=== PATIENT | male | born 2000 | race Caucasian/White ===

== ENCOUNTER 2018-10-15 10:56 | Emergency (ER) | payer BC, OTHER ==
[~2018-10-15] VITALS: Ht 177.8 cm; Wt 95.3 kg
[2018-10-15] MEDS ORDERED: IBUP-2185 PO (11:10)
--- NOTE | 2018-10-15 11:27 | ED Cough/URI ---
General Chief Complaint: Fever-Adult/Adol Stated Complaint: VOMITING; FEVER Nursing Triage Note: Started feeling bad at noon yesterday with fever, nausea, vomiting, and sore throat. Temp max of 103 yesterday. Has had body aches and weakness. States he has been able to keep down fluids and has taken ibuprofen 400 mg prior to coming to ED. 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 Reports occasional cough, no shortness of breath or wheezing. No history of asthma. Denies headache, neck pain, stiffness, rash. No abdominal pain, Luty diarrhea. No other acute symptoms or complaints. Patient denies history of chronic illnesses. Timing/Duration: yesterday Severity/Quality: mild Prior Episodes/Possible Cause: no prior episodes Modifying Factors: Improves With Rest Associated Symptoms: cough, fever/chills, muscle aches, nasal congestion, nasal drainage, sore throat, other Allergies and Home Medications Allergies Coded Allergies: No Known Drug Allergies (Unverified , 10/15/18) Home Medications Ibuprofen 200 Mg Capsule, 200 MG PO Q6H, (Reported) Patient Home Medication List Home Medication List Reviewed: Yes Review of Systems Review of Systems Constitutional: see HPI, fever EENTM: see HPI Respiratory: see HPI Genitourinary: No hematuria, No pain Musculoskeletal: back pain Skin: no symptoms reported Psychiatric/Neurological: No Symptoms Reported Hematologic/Lymphatic: See HPI; Denies Anemia, Denies Blood Clots, Denies Other Immunological/Allergic: denies see HPI, denies transplant Past Gwaenpl-Vqnvme-Jqhaol Hx Past Med/Social Hx: Reviewed Nursing Past Med/Soc Hx Patient Social History Recent Foreign Travel: No Contact w/Someone Who Travel: No Recent Infectious Disease Expo: No Physical Exam Vital Signs - First Documented 10/15/18 11:03 Temp 99.1 Pulse 109 Resp 16 B/P (MAP) 123/65 (84) Pulse Ox 96 Capillary Refill : Less Than 3 Seconds Height: 5'10.00" Weight: 210lbs. oz. [id number]; BMI Method:Stated General Appearance: WD/WN, no apparent distress Eyes: Bilateral Eye Normal Inspection, Bilateral Eye PERRL, Bilateral Eye EOMI HEENT: PERRL/EOMI, normal ENT inspection, TMs normal Neck: non-tender, full range of motion, supple, normal inspection, carotid bruit Respiratory: chest non-tender, lungs clear, normal breath sounds, no respiratory distress, no accessory muscle use, respiratory distress Cardiovascular: normal peripheral pulses, regular rate, rhythm, no edema, no gallop, no JVD, no murmur Gastrointestinal: normal bowel sounds, non tender, soft, no organomegaly, no pulsatile mass Extremities: normal range of motion, non-tender, normal inspection, no pedal edema, no calf tenderness, normal capillary refill, pelvis stable Skin: normal color, warm/dry, cyanosis, cool, diaphoresis, damp Lymphatic: no adenopathy, axilla node tender (R), axilla node tender (L), inguinal node tender (R), inguinal node tender (L) Focused Exam Sepsis Stage: Ruled Out Progress/Results/Core Measures Suspected Sepsis Recent Fever Within 48 Hours: Yes Infection Criteria Present: Suspected New Infection New/Unexplained Altered Menta: No Sepsis Screen: Possible Sepsis Risk SIRS Temperature:99.1 Pulse: 109 Respiratory Rate: 16 Blood Pressure 123 /65 Mean: 84 Results/Orders Vital Signs/I&O 10/15/18 11:03 Temp 99.1 Pulse 109 Resp 16 B/P (MAP) 123/65 (84) Pulse Ox 96 Capillary Refill : Less Than 3 Seconds Blood Pressure Mean: 84 Progress Note : Time: 11:22 Progress Note Symptoms are mild. Will treat supportively with watchful waiting and PCP follow- up as needed. Courtesy work note provided. Departure Impression Primary Impression: Influenza Disposition: HOME, SELF-CARE Condition: Unchanged Admissions Decision to Admit/Date: Oct 15, 2018 Departure-Patient Inst. Decision time for Depature: 11:23 Referrals: BETITO ENRIQUE APRN (PCP) Primary Care Physician CHUYITA MATA MD (Family) Primary Care Physician Patient Instructions: Flu, Adult (DC) Add. Discharge Instructions: Please increase fluids and take 600 mg of ibuprofen 3 times daily for fever and body aches. Take Zofran for nausea, hydrocodone as needed for additional relief and Mucinex D for body aches and congestion. Follow up with your PCP in 3-5 days if symptoms persist. Return to ED if new or worsening symptoms. All discharge instructions reviewed with patient and/or family. Voiced understanding. Scripts Guaifenesin/Pseudoephedrne HCl (Mucinex D ER 1,200-120 mg Tab) 1 Each Tab.er.12h 1 EACH PO Q12H, #18 TAB Prov: AYDEN CHAMBERS DO 10/15/18 Hydrocodone/Acetaminophen (Hydrocodone-Acetamin 5-325 mg) 1 Each Tablet 1 TAB PO Q4-6HR for PAIN-MODERATE MDD 10, #10 TAB Prov: AYDEN CHAMBERS DO 10/15/18 Ondansetron (Ondansetron Odt) 4 Mg Tab.rapdis 4 MG PO Q6H, #10 TAB Prov: AYDEN CHAMBERS DO 10/15/18 Work/School Note: Family Work Note Patient Received Medical Care In the Emergency Department On: Oct 15, 2018 Patient Will Be Able to Return to Work/School On: Sep 21, 2028 AYDEN CHAMBERS DO Oct 15, 2018 11:27
[2018-10-15] MEDS ORDERED: HYDR-3812 PO (11:29)
[2018-10-15] MEDS ORDERED: ONDA4TAB11 PO (11:29)
[2018-10-15] MEDS ORDERED: GUAI-365 PO (11:29)
[2018-10-15 11:37] VITALS: BP 118/75
== END 2018-10-15 11:39 | disposition home or self-care (01) ==
LOC: ER FS 10:58
DX: J11.1 Influenza due to unidentified influenza virus with other respiratory manifestations (principal)
CPT/HCPCS: 99282